=== PATIENT | male | born 1950 | race Caucasian/White ===

== ENCOUNTER 2016-03-31 09:45 | Inpatient (IN) ==
[2016-03-31] MEDS ORDERED: 0.9 % SODIUM CHLORIDE 500 ML IV ONE (10:10)
--- NOTE | 2016-03-31 10:45 | Emergency Department Note ---
Fever HPI - General Chief Complaint: Fever Stated Complaint: fever Time Seen by Provider: 03/31/16 10:42 Source: patient Mode of arrival: ambulatory Limitations: no limitations - History of Present Illness HPI Narrative: 65-year-old male was brought in from [facility]. He was brought in because he had a fever of 101 today. He has also had decrease in consciousness. He usually is able to talk and be verbal. He has been sleeping more. His brother is with him today and says he was lethargic on Sunday. His brother states he does not have a history of pneumonia but may have had urinary tract infections in the past. The patient denies pain. He does not seem in any distress. Christophe Roderick said that he was wheezing yesterday. His brother states he has not noticed a cough. - Related Data Home Medications Medication Instructions Recorded Confirmed Acetaminophen [Tylenol] 325 mg PO Q6HP PRN 03/31/16 03/31/16 Bisacodyl [Dulcolax] 10 mg DE PRN PRN 03/31/16 03/31/16 Divalproex Sodium [Depakote] 125 mg PO BID 03/31/16 03/31/16 Mag Hydrox/Al Hydrox/Simeth 30 ml PO PRN PRN 03/31/16 03/31/16 [Maalox] Memantine HCl [Namenda Xr] 28 mg PO DAILY 03/31/16 03/31/16 OLANZapine [Zyprexa] 2.5 mg PO HS 03/31/16 03/31/16 Pantoprazole [Protonix] 40 mg PO DAILY 03/31/16 03/31/16 Sertraline [Zoloft] 50 mg PO DAILY 03/31/16 03/31/16 levETIRAcetam [Keppra] 1,000 mg PO BID 03/31/16 03/31/16 Allergies Allergy/AdvReac Type Severity Reaction Status Date / Time No Known Drug Allergies Allergy Unverified 03/31/16 13:09 Review of Systems All systems ED: reviewed and negative except as stated. Fever PMH - Past Medical History Medical history: Reports: GERD, seizures, other (raumatic brain injury. Seizures , constipation,depression, GI distress) Surgical history ED: Reports: other (craniotomy) Psychiatric history: Reports: depression - Social History smoking status: Never smoker Physical Exam - General Limitations: altered mental status (unable to verbalize ) General appearance: lethargic - Head Head exam: atraumatic - Eye Eye exam: Present: normal appearance, PERRL, EOMI. Absent: conjunctival injection - Neck Neck exam: Present: normal inspection, full ROM - Chest Chest inspection: Present: normal inspection, symmetric chest wall rise - Respiratory Respiratory exam: Present: normal lung sounds bilaterally (unable to take deep breaths ). Absent: wheezes - Cardiovascular Cardiovascular exam: Present: normal rhythm, tachycardia, normal heart sounds - Abdominal Exam Abdominal exam: Present: soft, normal bowel sounds. Absent: tenderness, guarding, rebound - Neurological Exam Neurological exam: Absent: alert, oriented X3 (oriented to self) - Psychiatric Psychiatric exam: Present: normal mood - Skin Skin exam: Present: warm, dry, intact Course Course Narrative: After fluids he was alert and able to answer simple questions. He will be admitted for urosepsis. Vital Signs Temperature 99.1 F 03/31/16 09:47 Pulse Rate 91 H 03/31/16 09:47 Respiratory Rate 18 03/31/16 09:47 Blood Pressure 99/69 03/31/16 09:47 Pulse Oximetry (%) 92 03/31/16 09:47 Temperature 100.2 F H 03/31/16 13:12 Pulse Rate 98 H 03/31/16 13:16 Respiratory Rate 23 03/31/16 13:16 Blood Pressure 126/88 03/31/16 13:16 Pulse Oximetry (%) 93 03/31/16 13:16 Fever - Lab Data Result diagrams: 03/31/16 10:33 03/31/16 10:33 Lab Results 03/31/16 03/31/16 03/31/16 Range/Units 10:26 10:33 10:33 WBC 14.1 H (4.5-11.0) K/mcL RBC 4.72 (4.50-5.90) M/mcL Hgb 13.9 (13.5-16.5) g/dL Hct 42.9 (41.0-55.0) % MCV 90.9 (80.0-100.0) fL MCH 29.4 (26.0-34.0) pg MCHC 32.4 (31.0-36.0) g/dL RDW 14.4 (11.5-14.5) % Plt Count 134 L (140-440) K/mcL MPV 9.3 (7.4-10.4) fL Total Counted 100 Seg Neutrophils % 74 (38-78) % Band Neutrophils % 6 (0-10) % Lymphocytes % 11 L (15-49) % Monocytes % (Manual) 9 (1-9) % Platelet Estimate Decreased A (NORMAL) RBC Morphology Normal (NORMAL) VBG Lactic Acid 0.9 (0.5-2.2) mmol/L Sodium 139 (133-145) mmol/L Potassium 3.8 (3.3-5.1) mmol/L Chloride 101 (96-108) mmol/L Carbon Dioxide 25 (22-30) mmol/L Anion Gap 13.0 (8-16) BUN 13 (8-23) mg/dl Creatinine 0.7 (0.7-1.2) mg/dl GFR Calculation 100 Glucose 88 (70-105) mg/dL Calcium 8.5 L (8.6-10.4) mg/dl Total Bilirubin 1.1 H (0.0-1.0) mg/dL AST 14 (0-37) U/l ALT 7 (0-40) U/l Alkaline Phosphatase 66 (39-117) U/L Total Protein 6.8 (5.9-8.4) gm/dL Albumin 3.8 (3.2-5.2) gm/dL Globulin 3.0 (2.2-3.7) gm/dL Albumin/Globulin Ratio 1.3 (1.0-2.3) Urine Color Urine Appearance Urine pH (5.0-9.0) Ur Specific [place] (1.000-1.035) Urine Protein (NEG) mg/dL Urine Glucose (UA) (NEG) mg/dL Urine Ketones (NEG) mg/dL Urine Occult Blood (<0.03) mg/dL Urine Nitrate (NEG) Urine Bilirubin (NEG) mg/dL Urine Urobilinogen (NEG) mg/dL Ur Leukocyte Esterase (NEG) /uL Urine RBC (0-1) /hpf Urine WBC (0-4) /hpf Ur Squamous Epith Cells (0-4) /hpf Urine Bacteria (0) /hpf Urine Mucus (0) /hpf Ur Culture Indicated? 03/31/16 Range/Units 12:29 WBC (4.5-11.0) K/mcL RBC (4.50-5.90) M/mcL Hgb (13.5-16.5) g/dL Hct (41.0-55.0) % MCV (80.0-100.0) fL MCH (26.0-34.0) pg MCHC (31.0-36.0) g/dL RDW (11.5-14.5) % Plt Count (140-440) K/mcL MPV (7.4-10.4) fL Total Counted Seg Neutrophils % (38-78) % Band Neutrophils % (0-10) % Lymphocytes % (15-49) % Monocytes % (Manual) (1-9) % Platelet Estimate (NORMAL) RBC Morphology (NORMAL) VBG Lactic Acid (0.5-2.2) mmol/L Sodium (133-145) mmol/L Potassium (3.3-5.1) mmol/L Chloride (96-108) mmol/L Carbon Dioxide (22-30) mmol/L Anion Gap (8-16) BUN (8-23) mg/dl Creatinine (0.7-1.2) mg/dl GFR Calculation Glucose (70-105) mg/dL Calcium (8.6-10.4) mg/dl Total Bilirubin (0.0-1.0) mg/dL AST (0-37) U/l ALT (0-40) U/l Alkaline Phosphatase (39-117) U/L Total Protein (5.9-8.4) gm/dL Albumin (3.2-5.2) gm/dL Globulin (2.2-3.7) gm/dL Albumin/Globulin Ratio (1.0-2.3) Urine Color Sydni Urine Appearance Hazy Urine pH 6.0 (5.0-9.0) Ur Specific [place] 1.035 (1.000-1.035) Urine Protein 100 A (NEG) mg/dL Urine Glucose (UA) Negative (NEG) mg/dL Urine Ketones 20 A (NEG) mg/dL Urine Occult Blood 0.03 A (<0.03) mg/dL Urine Nitrate Pos A (NEG) Urine Bilirubin Neg (NEG) mg/dL Urine Urobilinogen 4.0 A (NEG) mg/dL Ur Leukocyte Esterase 500 A (NEG) /uL Urine RBC 18 H (0-1) /hpf Urine WBC > 182 H (0-4) /hpf Ur Squamous Epith Cells 0 (0-4) /hpf Urine Bacteria Many A (0) /hpf Urine Mucus Many A (0) /hpf Ur Culture Indicated? Yes Disposition Clinical Impression: Sepsis, Community acquired pneumonia Disposition: Xfer As Inpt ([facility]) Condition: Fair Referrals: Charanjit Nelson MD [Primary Care Provider] -
[2016-03-31 11:15] LABS: Mean Cell Volume 90.9 fL (80.0-100.0); Mean Corpuscular HGB Conc 32.4 g/dL (31.0-36.0); Mean Corpuscular Hemoglobin 29.4 pg (26.0-34.0); Platelet Count 134 K/mcL (140-440); RBC 4.72 M/mcL (4.50-5.90); Red Cell Distribution Width 14.4 % (11.5-14.5)
--- NOTE | 2016-03-31 11:24 | XRay Report ---
HISTORY: Reason for Exam:altered loc, fever FINDINGS: There is a subtle infiltrate posteriorly and medially in the left lower lobe. This is a new finding since 02/15/09. The heart is larger today than it was in the prior exam and is now borderline enlarged. There is no congestive heart failure or pleural effusion. There are multiple old healed right lateral rib fractures and old fractures of the right scapula, clavicle and humeral head. IMPRESSION: Mild atelectasis or pneumonia posteriorly and medially in the left lower lobe Interpreted and Authenticated by: Edmond Schreiber 03/31/16
[2016-03-31 11:56] LABS: Band Neutrophils % 6 % (0-10); Lymphocytes % 11 % (15-49); Monocytes % (Manual) 9 % (1-9); Platelet Estimate DECREASED (NORMAL); RBC Morphology NORMAL (NORMAL); Segmented Neutrophils % 74 % (38-78)
[2016-03-31] MEDS ORDERED: AZITHROMYCIN 500 MG in DEXTROSE 5% IN WATER 250 ML IV ONE (12:13)
[2016-03-31] MEDS ORDERED: cefTRIAXone 1 GM in DEXTROSE 5% IN WATER 50 ML IV SCH (12:15)
[2016-03-31 13:00] LABS: ALT/SGPT 7 U/l (0-40); Albumin 3.8 gm/dL (3.2-5.2); Albumin/Globulin Ratio 1.3 (1.0-2.3); Alkaline Phosphatase 66 U/L (39-117); Blood Urea Nitrogen 13 mg/dl (8-23)
[2016-03-31] MEDS ORDERED: ACETAMINOPHEN 325 MG TABLET PO ONE (13:05)
[2016-03-31 13:20] LABS: Appearance,Urine HAZY; Bacteria,Urine MANY /hpf (0); Bilirubin,Urine NEG (NEG); Color,Urine AMBER; Glucose,Urine (UA) NEGATIVE (NEG); Leukocyte Esterase,Urine 500 /uL (NEG); Mucus,Urine MANY /hpf (0); Nitrate,Urine POS (NEG); Protein,Urine 100 mg/dL (NEG); Specific Gravity,Urine 1.035 (1.000-1.035); Urine Blood 0.03 mg/dL (<0.03); Urine RBC 18 /hpf (0-1); Urine Squamous Epithelial Cell 0 /hpf (0-4); Urine WBC > 182 /hpf (0-4)
--- NOTE | 2016-03-31 14:16 | Internal Med History&Physical ---
Medical - H&P: HPI Patient information: Note initiated : 03/31/16 at 2:12 pm Service Date, if different from initiated Date: [] Patient: Armand Ramirez a 65 y/o M admitted on for Fever. Chief Complaint: [] History of present illness: Mr. Ramirez is a 65 year old male who lives with carrillo zepeda, presented to the ER with fever and decreased mentation. The patient brother provided history to the ER physician as per notes, but he was not at bedside. The patient only answers his name, but otherwise does not provide any meaninful history. The chart review notes that the patient has not been feeling well since sunday likely, with decrease in mentation and also having fever and that was the main reason for bringing him to the hospital. Possible cough and some h/o UTI in the past. The pt is a poor historian due to h/o traumatic brain injury. He is on multiple meds for same. ROS unobtainable: due to mental status Medical - H&P: PMH Medical history: traumatic brain injury seizure disorder? hydrocephalus? s/p shunt placement. Surgical history: UNDERCOLLAR BASTER shunt, (noted on CT scan of head done in the past) Pertinent family history: not available. Social history: lives with guardipeyton miller non smoker/ no etoh. as per chart Medical - H&P: Meds Home Medications Medication Instructions Recorded Confirmed Type Acetaminophen [Tylenol] 325 mg PO Q6HP PRN 03/31/16 03/31/16 History Bisacodyl [Dulcolax] 10 mg OR PRN PRN 03/31/16 03/31/16 History Divalproex Sodium [Depakote] 125 mg PO BID 03/31/16 03/31/16 History Mag Hydrox/Al Hydrox/Simeth 30 ml PO PRN PRN 03/31/16 03/31/16 History [Maalox] Memantine HCl [Namenda Xr] 28 mg PO DAILY 03/31/16 03/31/16 History OLANZapine [Zyprexa] 2.5 mg PO HS 03/31/16 03/31/16 History Pantoprazole [Protonix] 40 mg PO DAILY 03/31/16 03/31/16 History Sertraline [Zoloft] 50 mg PO DAILY 03/31/16 03/31/16 History levETIRAcetam [Keppra] 1,000 mg PO BID 03/31/16 03/31/16 History Allergies Allergy/AdvReac Type Severity Reaction Status Date / Time No Known Drug Allergies Allergy Unverified 03/31/16 13:09 Medical - H&P: Exam - Constitutional Vitals: Temp Pulse Resp BP Pulse Ox 100.2 F H 95 H 22 137/71 93 03/31/16 13:12 03/31/16 14:00 03/31/16 14:00 03/31/16 14:00 03/31/16 13:45 General appearance: cooperative, no acute distress - Head Head exam: Present: atraumatic, normal inspection - Eye Eye exam: Absent: periorbital swelling, periorbital tenderness, scleral icterus - ENT ENT exam: Present: mucous membranes moist - Neck Neck exam: Present: normal inspection - Respiratory Respiratory exam: Present: normal respiratory exam. Absent: prolonged expiratory phase, rhonchi, wheezes - Cardiovascular Cardiovascular exam: Present: normal rate and rhythm, +S1, +S2 - GI/Abdominal GI/Abdominal exam: Present: normal bowel sounds, soft. Absent: tenderness - Extremities Exam Extremities exam: Present: Foot pink and warm, neurovascular intact. Absent: pedal edema, tenderness - Neurological Exam Additional comments: aoox1, moves all extremities, no obvious focal deficit. - Psychiatric Additional comments: calm, cooperative, flat affect, Medical - H&P: Reslt - Labs CBC & Chem 7: 03/31/16 10:33 03/31/16 10:33 Labs: Short CBC 03/31/16 Range/Units 10:33 WBC 14.1 H (4.5-11.0) K/mcL Hgb 13.9 (13.5-16.5) g/dL Hct 42.9 (41.0-55.0) % Plt Count 134 L (140-440) K/mcL BMP 03/31/16 10:33 Sodium 139 Potassium 3.8 Chloride 101 Carbon Dioxide 25 BUN 13 Creatinine 0.7 Glucose 88 Calcium 8.5 L Liver Function 03/31/16 Range/Units 10:33 Total Bilirubin 1.1 H (0.0-1.0) mg/dL AST 14 (0-37) U/l ALT 7 (0-40) U/l Alkaline Phosphatase 66 (39-117) U/L Albumin 3.8 (3.2-5.2) gm/dL Urine 03/31/16 Range/Units 12:29 Urine Color Sydni Urine Appearance Hazy Urine pH 6.0 (5.0-9.0) Ur Specific [place] 1.035 (1.000-1.035) Urine Protein 100 A (NEG) mg/dL Urine Glucose (UA) Negative (NEG) mg/dL Medical - H&P: A/P (1) Traumatic brain injury Current visit: Yes Status: Acute (2) Urinary tract infection Current visit: Yes Status: Acute (3) Community acquired pneumonia Current visit: Yes Status: Acute (4) Sepsis Current visit: Yes Status: Acute - Narrative A/P Narrative: The patient a resident of [facility], presents with fever, possible pna on X ray and UTI Sepsis- elevated wbc, fever, increased hr and rr, BP stable, continue with IV fluids, lactate is normal Pneumonia- BLood cultures drawn, IV rocephin, zithromax given in the ER will change to doxycycline in light of the patients interaction with psych meds complicated UTI- UA positive, given male with UTI, get Renal USG, IV rocephin should cover this, will need 10 to 14 days of abx, await cultures DVT hep diet regular, ST eval OT/ PT consult Case management eveal Fall precautions Code status full code till we can verify
[2016-03-31] MEDS ORDERED: PROMETHAZINE 25 MG/ML VIAL IV PRN (15:41)
[2016-03-31] MEDS ORDERED: MAGNESIUM HYDROXIDE 30 ML ORAL.SUSP PO PRN (15:41)
[2016-03-31] MEDS ORDERED: ACETAMINOPHEN 325 MG TABLET PO PRN (15:41)
[2016-03-31] MEDS ORDERED: ONDANSETRON 4 MG/2 ML VIAL IV PRN (15:41)
[2016-03-31] MEDS: 0.9 % SODIUM CHLORIDE 1,000 ML IV SCH (17:21)
[2016-03-31] MEDS: 0.9 % SODIUM CHLORIDE 10 ML SYRINGE IV SCH ×2 (17:38→22:19)
[2016-03-31] MEDS: DOXYCYCLINE HYCLATE 100 MG TABLET.ORL PO SCH ×2 (17:38→21:14)
[2016-03-31] MEDS: HEPARIN 5,000 UNIT/ML VIAL SQ SCH (21:12)
[2016-03-31] MEDS: levETIRAcetam 500 MG TABLET PO SCH (21:13)
[2016-03-31] MEDS: OLANZapine 2.5 MG TABLET PO SCH (21:14)
[2016-03-31] MEDS: DIVALPROEX 125 MG CAP.SPRINK PO SCH (21:14)
[2016-03-31] MEDS: DOCUSATE SODIUM 100 MG CAPSULE PO SCH (21:14)
[2016-04-01] MEDS: 0.9 % SODIUM CHLORIDE 1,000 ML IV SCH ×3 (04:17→14:08)
[2016-04-01] MEDS: 0.9 % SODIUM CHLORIDE 10 ML SYRINGE IV SCH ×2 (04:25→12:07)
[2016-04-01 07:57] LABS: ALT/SGPT 7 U/l (0-40); Albumin 3.2 gm/dL (3.2-5.2); Albumin/Globulin Ratio 1.2 (1.0-2.3); Alkaline Phosphatase 52 U/L (39-117); Bilirubin,Direct < 0.2 mg/dL (0.0-0.3); Blood Urea Nitrogen 11 mg/dl (8-23); Gamma Glutamyl Transpeptidase 14 U/L (8-61); Magnesium 1.8 mg/dL (1.6-2.5); Phosphorous 2.8 mg/dL (2.7-4.5); Uric Acid 3.6 mg/dL (2.5-8.0)
[2016-04-01 08:21] LABS: Eosinophils % (Manual) 1 % (0-7); Lymphocytes % 8 % (15-49); Monocytes % (Manual) 5 % (1-9); Platelet Estimate DECREASED (NORMAL); RBC Morphology NORMAL (NORMAL); Segmented Neutrophils % 86 % (38-78)
[2016-04-01 08:36] LABS: Mean Cell Volume 90.3 fL (80.0-100.0); Mean Corpuscular HGB Conc 32.8 g/dL (31.0-36.0); Mean Corpuscular Hemoglobin 29.6 pg (26.0-34.0); Platelet Count 99 K/mcL (140-440); RBC 4.16 M/mcL (4.50-5.90)
[2016-04-01] MEDS: cefTRIAXone 1 GM in DEXTROSE 5% IN WATER 50 ML IV SCH (08:50)
[2016-04-01] MEDS: levETIRAcetam 500 MG TABLET PO SCH ×2 (08:51→21:01)
[2016-04-01] MEDS: DOXYCYCLINE HYCLATE 100 MG TABLET.ORL PO SCH ×2 (08:51→21:21)
[2016-04-01] MEDS: DOCUSATE SODIUM 100 MG CAPSULE PO SCH ×2 (08:51→21:21)
[2016-04-01] MEDS: HEPARIN 5,000 UNIT/ML VIAL SQ SCH ×2 (08:51→21:01)
[2016-04-01] MEDS: PANTOPRAZOLE 40 MG TABLET PO SCH (08:51)
[2016-04-01] MEDS: DIVALPROEX 125 MG CAP.SPRINK PO SCH ×2 (08:51→21:21)
[2016-04-01] MEDS: SERTRALINE 50 MG TABLET PO SCH (08:52)
[2016-04-01] MEDS: MEMANTINE HCL 28 MG PO SCH ×2 (08:52→09:53)
[2016-04-01] MEDS ORDERED: cefTRIAXone 1 GM in DEXTROSE 5% IN WATER 50 ML IV SCH (12:15)
--- NOTE | 2016-04-01 13:56 | Ultrasound Report ---
History: Complex urinary tract infection Findings: The right kidney measures 4.6 x 4.6 x 11.2 cm the left measures 5.5 x 6.0 x 12.2 cm. The cortex is normal in thickness and echogenicity bilaterally. There is no mass, cyst, calculus, hydronephrosis or evidence of inflammation in or around either kidney. Doppler shows flow of urine through the left ureter to the bladder. We are unable to document flow on the right side. The urinary bladder is normally distended and has a smooth contour, with no intraluminal filling defect. It measures 139 cc. He was unable to void. Therefore we did not acquire a post void image. The prostate has an estimated volume of 25 cc. It appears homogeneous. Impression: Normal exam except for relatively diminished urine output on the right side compared to the left. This could be related to dehydration. Interpreted and Authenticated by: Edmond Schreiber 04/01/16
--- NOTE | 2016-04-01 15:20 | Internal Med Progress Note ---
Medical - PN: Subj Patient information: Note initiated : 04/01/16 at 3:17 pm Service Date, if different from initiated Date: [] Patient: Armand Ramirez 65 y/o M admitted on 03/31/16 for Fever. Chief Complaint: [] Interval history: The patient seen examined, in the bed comfortable, no acute overnight events. no new complaints. no more febrile, bp stable Urine cultures is positive for gram neg bacillus blood cultures one bottle positive for gram positive cocci. Pertinent ROS: Denies headache, dizziness Denies chest pain, palpitations Denies cough or shortness of breath Denies abdominal pain, nausea or vomiting. - Constitutional Vitals: Vital Signs Temp Pulse Resp BP Pulse Ox 99.1 F 81 18 132/70 94 04/01/16 12:00 04/01/16 07:30 04/01/16 12:00 04/01/16 12:00 04/01/16 12:00 Period Temp Pulse Resp BP Sys/Leigh Pulse Ox Last 24 Hr 97.6 F-100.2 F 77-95 16-22 99-132/69-89 92-97 Intake and Output 04/01/16 04/01/16 04/01/16 05:59 13:59 21:59 Intake Total 1640 / 1640 220 / 220 1000 / 1000 Output Total 2 / 2 2 / 2 Balance 1638 / 1638 218 / 218 1000 / 1000 Weight 209 lb Patient Weight 04/02/16 05:59 Weight 209 lb Intake & Output: Intake & Output 04/01/16 04/01/16 04/01/16 05:59 13:59 21:59 Intake Total 1640 / 1640 220 / 220 1000 / 1000 Output Total 2 / 2 2 / 2 Balance 1638 / 1638 218 / 218 1000 / 1000 Weight 209 lb Intake: IV 1000 / 1000 1000 / 1000 Sodium Chloride 0.9% 1, 1000 / 1000 1000 / 1000 000 ml @ 100 mls/hr IV . Q10H ELSA Rx#:[id number] Oral 640 / 640 220 / 220 Output: # of times incontinent of 2 / 2 2 / 2 urine Other: Meal Lunch Percent of Meal Consumed 50% Feeding Ability Total Assistance Exam: Constitutional; Afebrile, cooperative, alert, not in distress. Eyes- No icterus, Pupils equal, reactive, No periorbital swelling Ears- Ext ear normal, hearing normal to conversation. Neck- Midline trachea, supple Respiratory system: Air Entry equal on both sides, No crackles or wheezing, no rhonchi. CVS- Rate rhythm regular, S1,S2 heard, no gallop, no rub. Abdomen- Soft nontender abdomen, no organomegaly, no tenderness, no guarding or rigidity, STEEL LOADER- AOOx1, moving all extremities, no obvious focal deficit noted. Medical - PN: Obj Da - Labs CBC & Chem 7: 04/01/16 06:27 04/01/16 06:27 Labs: Abnormal Lab Results 04/01/16 04/01/16 06:27 06:27 RBC 4.16 L Hgb 12.3 L Hct 37.5 L Plt Count 99 L Seg Neutrophils % 86 H Lymphocytes % 8 L Platelet Estimate Decreased A Creatinine 0.6 L Calcium 7.7 L Total Protein 5.8 L Meds: Medications Acetaminophen (Tylenol) 650 mg PO Q6HP PRN PRN Reason: PAIN/FEVER > 101 Divalproex Sodium (Depakote Sprinkles) 125 mg PO BID [facility] Last Admin: 04/01/16 08:51 Dose: 125 mg Docusate Sodium (Colace) 100 mg PO BID [facility] Last Admin: 04/01/16 08:51 Dose: Not Given Doxycycline Hyclate (Doxycycline Hyclate) 100 mg PO BID [facility] Stop: 04/06/16 21:01 Last Admin: 04/01/16 08:51 Dose: 100 mg Heparin Sodium (Porcine) (Heparin) 5,000 unit SQ Q12 [facility] Last Admin: 04/01/16 08:51 Dose: 5,000 unit Sodium Chloride (Sodium Chloride 0.9%) 1,000 mls @ 100 mls/hr IV .Q10H [facility] Last Admin: 04/01/16 14:08 Dose: 100 mls/hr Ceftriaxone Sodium 1 gm/ (Dextrose) 50 mls @ 100 mls/hr IV DAILY [facility] Last Admin: 04/01/16 08:50 Dose: 100 mls/hr Levetiracetam (Keppra) 1,000 mg PO BID [facility] Last Admin: 04/01/16 08:51 Dose: 1,000 mg Magnesium Hydroxide (Milk Of Magnesia) 30 ml PO DAILYP PRN PRN Reason: Constipation Olanzapine (Zyprexa) 2.5 mg PO HS [facility] Last Admin: 03/31/16 21:14 Dose: 2.5 mg Ondansetron HCl (Zofran) 4 mg IV Q6HP PRN PRN Reason: Nausea And Vomiting Pantoprazole Sodium (Protonix) 40 mg PO ACB [facility] Last Admin: 04/01/16 08:51 Dose: 40 mg Memantine Hcl [ Namenda Xr] 28 Mg Capsule 1 dose PO DAILY [facility] Last Admin: 04/01/16 09:53 Dose: 1 dose Promethazine HCl (Phenergan) 12.5 mg IV Q6HP PRN PRN Reason: Nausea And Vomiting Sertraline HCl (Zoloft) 50 mg PO DAILY [facility] Last Admin: 04/01/16 08:52 Dose: 50 mg Sodium Chloride (Saline Flush) 10 ml IV Q8 [facility] Last Admin: 04/01/16 12:07 Dose: Not Given Medical - PN: A/P - Time Spent With Patient Total time spent is greater than 50% in coordination of care (as documented) at patient's floor/unit and/or counseling patient: (1) Traumatic brain injury Status: Acute Current Visit: Yes (2) Urinary tract infection Status: Acute Current Visit: Yes (3) Community acquired pneumonia Status: Acute Current Visit: Yes - Narrative A/P Narrative: The patient is improving clinically, sepsis resolved. Contique IV Rocephin for UTI / PNA continue doxycycline IV fluids Await sensitivities I think that eh GPC in the blood is a contaminant, repeat cultures ordered. monitor for now PT / OT Medical - PN: Qual - Stroke Symptom Onset Unknown: No - VTE Deep Vein Thrombosis/Pulmonary Embolism Present on Admission: No
[2016-04-01] MEDS: OLANZapine 2.5 MG TABLET PO SCH (21:01)
[2016-04-02] MEDS: 0.9 % SODIUM CHLORIDE 1,000 ML IV SCH ×3 (01:54→16:09)
[2016-04-02] MEDS: 0.9 % SODIUM CHLORIDE 10 ML SYRINGE IV SCH ×4 (01:58→22:13)
[2016-04-02 07:04] LABS: ALT/SGPT 6 U/l (0-40); Albumin 2.9 gm/dL (3.2-5.2); Albumin/Globulin Ratio 1.1 (1.0-2.3); Alkaline Phosphatase 51 U/L (39-117); Bilirubin,Direct < 0.2 mg/dL (0.0-0.3); Blood Urea Nitrogen 10 mg/dl (8-23); Gamma Glutamyl Transpeptidase 15 U/L (8-61); Magnesium 1.8 mg/dL (1.6-2.5); Mean Corpuscular HGB Conc 32.6 g/dL (31.0-36.0); Mean Corpuscular Hemoglobin 29.7 pg (26.0-34.0); Phosphorous 3.2 mg/dL (2.7-4.5); Platelet Count 107 K/mcL (140-440); RBC 4.14 M/mcL (4.50-5.90); Uric Acid 3.5 mg/dL (2.5-8.0)
[2016-04-02] MEDS: PANTOPRAZOLE 40 MG TABLET PO SCH (07:25)
[2016-04-02 08:36] LABS: Band Neutrophils % 1 % (0-10); Eosinophils % (Manual) 5 % (0-7); Lymphocytes % 34 % (15-49); Monocytes % (Manual) 12 % (1-9); Platelet Estimate DECREASED (NORMAL); RBC Morphology NORMAL (NORMAL); Segmented Neutrophils % 48 % (38-78)
[2016-04-02] MEDS: DOCUSATE SODIUM 100 MG CAPSULE PO SCH ×3 (08:44→21:21)
[2016-04-02] MEDS: HEPARIN 5,000 UNIT/ML VIAL SQ SCH ×2 (09:00→21:18)
[2016-04-02] MEDS: levETIRAcetam 500 MG TABLET PO SCH ×2 (09:00→21:19)
[2016-04-02] MEDS: DIVALPROEX 125 MG CAP.SPRINK PO SCH ×2 (09:00→21:18)
[2016-04-02] MEDS: MEMANTINE HCL 28 MG PO SCH (09:00)
[2016-04-02] MEDS: SERTRALINE 50 MG TABLET PO SCH (09:01)
[2016-04-02] MEDS: cefTRIAXone 1 GM in DEXTROSE 5% IN WATER 50 ML IV SCH (09:01)
[2016-04-02] MEDS: DOXYCYCLINE HYCLATE 100 MG TABLET.ORL PO SCH ×2 (09:29→21:33)
--- NOTE | 2016-04-02 13:56 | Internal Med Progress Note ---
Medical - PN: Subj Patient information: Note initiated : 04/02/16 at 1:51 pm Service Date, if different from initiated Date: [] Patient: Armand Ramirez 65 y/o M admitted on 03/31/16 for Fever. Chief Complaint: [] Interval history: Pt seen examined lying comfortably in bed, no complaints able to have limited conversation denies any issues labs reviewed, wbc normal urine culture is proteus BC positive on day of admission 2/2 bottles gpc, sensitivies and isolation pending. repeat culutes ordered results not back yet. Pertinent ROS: Denies headache, dizziness Denies chest pain, palpitations Denies cough or shortness of breath Denies abdominal pain, nausea or vomiting. - Constitutional Vitals: Vital Signs Temp Pulse Resp BP Pulse Ox 97.4 F L 84 16 112/75 95 04/02/16 12:00 04/02/16 04:00 04/02/16 12:00 04/02/16 12:00 04/02/16 12:00 Period Temp Pulse Resp BP Sys/Leigh Pulse Ox Last 24 Hr 97.4 F-99.6 F 67-84 16-18 99-118/61-80 93-95 Intake and Output 04/01/16 04/02/16 04/02/16 21:59 05:59 13:59 Intake Total 1340 / 1340 1300 / 1300 240 / 240 Output Total / 2 / 2 Balance 1338 / 1338 1298 / 1298 239 / 239 Weight 216 lb 8 oz Intake & Output: Intake & Output 04/01/16 04/02/16 04/02/16 21:59 05:59 13:59 Intake Total 1340 / 1340 1300 / 1300 240 / 240 Output Total / 2 Balance 1338 / 1338 1298 / 1298 239 / 239 Weight 216 lb 8 oz Intake: IV 1000 / 1000 1000 / 1000 Sodium Chloride 0.9% 1, 1000 / 1000 1000 / 1000 000 ml @ 100 mls/hr IV . Q10H [facility] Rx#:[id number] Oral 340 / 340 300 / 300 240 / 240 Output: # of times incontinent of 2 / 2 2 / 2 urine Other: Meal Dinner Lunch Percent of Meal Consumed 50% 100% Feeding Ability Total Assistance # Bowel Movements 1 Exam: Constitutional; Afebrile, cooperative, alert, not in distress. Eyes- No icterus, Pupils equal, reactive, No periorbital swelling Ears- Ext ear normal, hearing normal to conversation. Neck- Midline trachea, supple Respiratory system: Air Entry equal on both sides, No crackles or wheezing, no rhonchi. CVS- Rate rhythm regular, S1,S2 heard, no gallop, no rub. Abdomen- Soft nontender abdomen, no organomegaly, no tenderness, no guarding or rigidity, PV INSTALLER TECH- AOOx1, moving all extremities, no focal deficit noted. Psych- no agitation, poor comphrension. Medical - PN: Obj Da - Labs CBC & Chem 7: 04/02/16 05:00 04/02/16 05:00 Labs: Abnormal Lab Results 04/02/16 04/02/16 04/01/16 05:00 05:00 06:27 RBC 4.14 L Hgb 12.3 L Hct 37.7 L Plt Count 107 L Seg Neutrophils % Lymphocytes % Monocytes % (Manual) 12 H Platelet Estimate Decreased A Creatinine 0.6 L 0.6 L Calcium 7.8 L 7.7 L Total Protein 5.5 L 5.8 L Albumin 2.9 L 04/01/16 06:27 RBC 4.16 L Hgb 12.3 L Hct 37.5 L Plt Count 99 L Seg Neutrophils % 86 H Lymphocytes % 8 L Monocytes % (Manual) Platelet Estimate Decreased A Creatinine Calcium Total Protein Albumin Meds: Medications Acetaminophen (Tylenol) 650 mg PO Q6HP PRN PRN Reason: PAIN/FEVER > 101 Divalproex Sodium (Depakote Sprinkles) 125 mg PO BID [facility] Last Admin: 04/02/16 09:00 Dose: 125 mg Docusate Sodium (Colace) 100 mg PO BID [facility] Last Admin: 04/02/16 09:00 Dose: 100 mg Doxycycline Hyclate (Doxycycline Hyclate) 100 mg PO BID [facility] Stop: 04/06/16 21:01 Last Admin: 04/02/16 09:29 Dose: 100 mg Heparin Sodium (Porcine) (Heparin) 5,000 unit SQ Q12 [facility] Last Admin: 04/02/16 09:00 Dose: 5,000 unit Sodium Chloride (Sodium Chloride 0.9%) 1,000 mls @ 100 mls/hr IV .Q10H [facility] Last Admin: 04/02/16 07:26 Dose: 100 mls/hr Ceftriaxone Sodium 1 gm/ (Dextrose) 50 mls @ 100 mls/hr IV DAILY [facility] Last Admin: 04/02/16 09:01 Dose: 100 mls/hr Levetiracetam (Keppra) 1,000 mg PO BID [facility] Last Admin: 04/02/16 09:00 Dose: 1,000 mg Magnesium Hydroxide (Milk Of Magnesia) 30 ml PO DAILYP PRN PRN Reason: Constipation Olanzapine (Zyprexa) 2.5 mg PO HS [facility] Last Admin: 04/01/16 21:01 Dose: 2.5 mg Ondansetron HCl (Zofran) 4 mg IV Q6HP PRN PRN Reason: Nausea And Vomiting Pantoprazole Sodium (Protonix) 40 mg PO ACB [facility] Last Admin: 04/02/16 07:25 Dose: 40 mg Memantine Hcl [ Namenda Xr] 28 Mg Capsule 1 dose PO DAILY [facility] Last Admin: 04/02/16 09:00 Dose: 1 dose Promethazine HCl (Phenergan) 12.5 mg IV Q6HP PRN PRN Reason: Nausea And Vomiting Sertraline HCl (Zoloft) 50 mg PO DAILY [facility] Last Admin: 04/02/16 09:01 Dose: 50 mg Sodium Chloride (Saline Flush) 10 ml IV Q8 [facility] Last Admin: 04/02/16 13:38 Dose: Not Given Medical - PN: A/P - Time Spent With Patient Total time spent is greater than 50% in coordination of care (as documented) at patient's floor/unit and/or counseling patient: (1) Traumatic brain injury Status: Acute Current Visit: Yes (2) Urinary tract infection Status: Acute Current Visit: Yes (3) Community acquired pneumonia Status: Acute Current Visit: Yes (4) Bacteremia Status: Acute Current Visit: Yes - Narrative A/P Narrative: UTI- on rocephin, continue same, switch to appropriate oral at discharge bactyermia- both bottles positive, but high suspiction this is contaminant, await sensitiviies, give one dose of vancomycin. await repeat cultures. clincally patient is improving. cap pneumonia- on doxy and rocephin continue same. dVT hep sq diet mech soft with thin liq Await pt dispo in AM if remains stable. Medical - PN: Qual - Stroke Symptom Onset Unknown: No - VTE Deep Vein Thrombosis/Pulmonary Embolism Present on Admission: No
[2016-04-02] MEDS ORDERED: VANCOMYCIN 1,000 MG in 0.9 % SODIUM CHLORIDE 250 ML IV ONE (15:00)
[2016-04-02] MEDS: OLANZapine 2.5 MG TABLET PO SCH (21:18)
[2016-04-03] MEDS: 0.9 % SODIUM CHLORIDE 1,000 ML IV SCH ×3 (00:15→14:13)
[2016-04-03] MEDS: 0.9 % SODIUM CHLORIDE 10 ML SYRINGE IV SCH ×3 (05:16→20:50)
[2016-04-03 06:32] LABS: ALT/SGPT 9 U/l (0-40); Albumin 3.1 gm/dL (3.2-5.2); Albumin/Globulin Ratio 1.2 (1.0-2.3); Alkaline Phosphatase 49 U/L (39-117); Bilirubin,Direct < 0.2 mg/dL (0.0-0.3); Blood Urea Nitrogen 8 mg/dl (8-23); Gamma Glutamyl Transpeptidase 13 U/L (8-61); Magnesium 1.7 mg/dL (1.6-2.5); Phosphorous 3.1 mg/dL (2.7-4.5); Uric Acid 3.8 mg/dL (2.5-8.0)
[2016-04-03 06:33] LABS: Platelet Count 130 K/mcL (140-440); RBC 4.09 M/mcL (4.50-5.90); Red Cell Distribution Width 13.8 % (11.5-14.5)
[2016-04-03] MEDS: PANTOPRAZOLE 40 MG TABLET PO SCH (07:14)
[2016-04-03] MEDS ORDERED: VANCOMYCIN PER PHARMACY IV SCH (07:35)
[2016-04-03] MEDS: DOCUSATE SODIUM 100 MG CAPSULE PO SCH ×2 (07:40→20:50)
[2016-04-03] MEDS: cefTRIAXone 1 GM in DEXTROSE 5% IN WATER 50 ML IV SCH (07:40)
[2016-04-03] MEDS: levETIRAcetam 500 MG TABLET PO SCH ×2 (07:41→20:44)
[2016-04-03] MEDS: MEMANTINE HCL 28 MG PO SCH (07:41)
[2016-04-03] MEDS: DIVALPROEX 125 MG CAP.SPRINK PO SCH ×2 (07:42→20:45)
[2016-04-03] MEDS: HEPARIN 5,000 UNIT/ML VIAL SQ SCH ×2 (07:43→20:48)
[2016-04-03] MEDS: SERTRALINE 50 MG TABLET PO SCH (07:43)
[2016-04-03 08:38] LABS: Band Neutrophils % 10 % (0-10); Basophils % (Manual) 1 % (0-2); Eosinophils % (Manual) 4 % (0-7); Lymphocytes % 21 % (15-49); Monocytes % (Manual) 9 % (1-9); Platelet Estimate DECREASED (NORMAL); RBC Morphology NORMAL (NORMAL); Segmented Neutrophils % 55 % (38-78)
[2016-04-03] MEDS: DOXYCYCLINE HYCLATE 100 MG TABLET.ORL PO SCH ×2 (08:44→20:57)
[2016-04-03] MEDS: VANCOMYCIN 1,500 MG in 0.9 % SODIUM CHLORIDE 500 ML IV SCH ×2 (12:29→20:43)
--- NOTE | 2016-04-03 16:15 | Internal Med Progress Note ---
Medical - PN: Subj Patient information: Note initiated : 04/03/16 at 4:11 pm Service Date, if different from initiated Date: [] Patient: Armand Ramirez 65 y/o M admitted on 03/31/16 for Fever/Pneumonia, Sepsis, UTI. Chief Complaint: [] Interval history: the patient seen examined doing ok, no acute complaints slep well last night not a very good historian due to his mental condition. his labs reviwed UA postive for UTI proteus mirabilit his BC is again positive for one bottle, started on vancomycin, echo ordered. The patient is a very hard stick and I stil lthink that the patients blood cultures are positive from poor collection technique. Pertinent ROS: Denies headache, dizziness Denies chest pain, palpitations Denies cough or shortness of breath Denies abdominal pain, nausea or vomiting. - Constitutional Vitals: Vital Signs Temp Pulse Resp BP Pulse Ox 98.1 F 80 16 105/76 90 04/03/16 12:00 04/03/16 12:00 04/03/16 12:00 04/03/16 12:00 04/03/16 12:00 Period Temp Pulse Resp BP Sys/Leigh Pulse Ox Last 24 Hr 98.0 F-98.7 F 60-83 12-18 105-131/62-76 89-97 Intake and Output 04/03/16 04/03/16 04/03/16 05:59 13:59 21:59 Intake Total 300 / 300 1000 / 1000 Output Total 2 / 2 1 / Balance 298 / 298 1000 / 1000 -1 / -1 Intake & Output: Intake & Output 04/03/16 04/03/16 04/03/16 05:59 13:59 21:59 Intake Total 300 / 300 1000 / 1000 Output Total 2 / 2 1 / Balance 298 / 298 1000 / 1000 -1 / -1 Intake: IV 1000 / 1000 Sodium Chloride 0.9% 1, 1000 / 1000 000 ml @ 100 mls/hr IV . Q10H [facility] Rx#:[id number] Oral 300 / 300 Output: # of times incontinent of 2 / 2 1 / urine Other: Meal Lunch Percent of Meal Consumed 75% Exam: Constitutional; Afebrile, cooperative, alert, not in distress. Eyes- No icterus, No periorbital swelling Ears- Ext ear normal, hearing normal to conversation. Neck- Midline trachea, supple Respiratory system: Air Entry equal on both sides, No crackles or wheezing, no rhonchi. CVS- Rate rhythm regular, S1,S2 heard, no gallop, no rub. Abdomen- Soft nontender abdomen, no organomegaly, no tenderness, no guarding or rigidity, FISH HATCHERY ASSISTANT- AOOx1, moving all extremities, no focal deficit noted. Medical - PN: Obj Da - Labs CBC & Chem 7: 04/03/16 05:34 04/03/16 04:39 Labs: Abnormal Lab Results 04/03/16 04/03/16 04/02/16 05:34 04:39 05:00 RBC 4.09 L Hgb 12.3 L Hct 37.2 L Plt Count 130 L Seg Neutrophils % Lymphocytes % Monocytes % (Manual) Platelet Estimate Decreased A Creatinine 0.6 L 0.6 L Calcium 7.9 L 7.8 L Lactate Dehydrogenase 264 H Total Protein 5.7 L 5.5 L Albumin 3.1 L 2.9 L Triglycerides 173 H 04/02/16 04/01/16 04/01/16 05:00 06:27 06:27 RBC 4.14 L 4.16 L Hgb 12.3 L 12.3 L Hct 37.7 L 37.5 L Plt Count 107 L 99 L Seg Neutrophils % 86 H Lymphocytes % 8 L Monocytes % (Manual) 12 H Platelet Estimate Decreased A Decreased A Creatinine 0.6 L Calcium 7.7 L Lactate Dehydrogenase Total Protein 5.8 L Albumin Triglycerides Meds: Medications Acetaminophen (Tylenol) 650 mg PO Q6HP PRN PRN Reason: PAIN/FEVER > 101 Divalproex Sodium (Depakote Sprinkles) 125 mg PO BID [facility] Last Admin: 04/03/16 07:42 Dose: 125 mg Docusate Sodium (Colace) 100 mg PO BID [facility] Last Admin: 04/03/16 07:40 Dose: Not Given Doxycycline Hyclate (Doxycycline Hyclate) 100 mg PO BID [facility] Stop: 04/06/16 21:01 Last Admin: 04/03/16 08:44 Dose: 100 mg Heparin Sodium (Porcine) (Heparin) 5,000 unit SQ Q12 [facility] Last Admin: 04/03/16 07:43 Dose: 5,000 unit Sodium Chloride (Sodium Chloride 0.9%) 1,000 mls @ 100 mls/hr IV .Q10H [facility] Last Admin: 04/03/16 14:13 Dose: 100 mls/hr Ceftriaxone Sodium 1 gm/ (Dextrose) 50 mls @ 100 mls/hr IV DAILY [facility] Last Admin: 04/03/16 07:40 Dose: 100 mls/hr Vancomycin HCl 1,500 mg/ (Sodium Chloride) 500 mls @ 333.3 mls/hr IV Q12H [facility] Last Admin: 04/03/16 12:29 Dose: 333.3 mls/hr Levetiracetam (Keppra) 1,000 mg PO BID [facility] Last Admin: 04/03/16 07:41 Dose: 1,000 mg Magnesium Hydroxide (Milk Of Magnesia) 30 ml PO DAILYP PRN PRN Reason: Constipation Olanzapine (Zyprexa) 2.5 mg PO HS [facility] Last Admin: 04/02/16 21:18 Dose: 2.5 mg Ondansetron HCl (Zofran) 4 mg IV Q6HP PRN PRN Reason: Nausea And Vomiting Pantoprazole Sodium (Protonix) 40 mg PO ACB [facility] Last Admin: 04/03/16 07:14 Dose: 40 mg Memantine Hcl [ Namenda Xr] 28 Mg Capsule 1 dose PO DAILY [facility] Last Admin: 04/03/16 07:41 Dose: 1 dose Promethazine HCl (Phenergan) 12.5 mg IV Q6HP PRN PRN Reason: Nausea And Vomiting Sertraline HCl (Zoloft) 50 mg PO DAILY [facility] Last Admin: 04/03/16 07:43 Dose: 50 mg Sodium Chloride (Saline Flush) 10 ml IV Q8 [facility] Last Admin: 04/03/16 14:13 Dose: Not Given Vancomycin HCl (Vancomycin Per Pharmacy) 1 order IV UD [facility] Medical - PN: A/P - Time Spent With Patient Total time spent is greater than 50% in coordination of care (as documented) at patient's floor/unit and/or counseling patient: (1) Traumatic brain injury Status: Acute Current Visit: Yes (2) Urinary tract infection Status: Acute Current Visit: Yes (3) Community acquired pneumonia Status: Acute Current Visit: Yes (4) Bacteremia Status: Acute Current Visit: Yes - Narrative A/P Narrative: The patient continues to improve, plan was for d/c today, however given his blood cultures being positive IV vanco started, echo ordered, repeat cultures ordered coag neg staph is a common contaminant of poor culture technique, this patient is a hard stick for labs Plan to continue antibiotics for uti and pna dvt hep sq Diet dyphagia diet. Medical - PN: Qual - Stroke Symptom Onset Unknown: No - VTE Deep Vein Thrombosis/Pulmonary Embolism Present on Admission: No
[2016-04-03] MEDS: OLANZapine 2.5 MG TABLET PO SCH (20:44)
[2016-04-04] MEDS: 0.9 % SODIUM CHLORIDE 1,000 ML IV SCH ×2 (06:44→09:11)
--- NOTE | 2016-04-04 07:07 | Echocardiogram Report ---
ECHOCARDIOGRAM: 2-D and M-mode echocardiography with cardiac Doppler and color flow imaging were performed with a [employer]a [employer] MX. Indication is bacteremia. Overall and size of the RA and RV appeared normal. The LA appeared mildly enlarged and the LV appeared borderline enlarged. LV wall thickness appeared mildly increased. Systolic performance appeared normal to vigorous. Estimated ejection fraction is 65-70%. The aortic root and ascending aorta appeared moderately to severely dilated, 5.0 cm diameter. The aortic valve appeared trileaflet and normal. There was no evidence for aortic stenosis by Doppler interrogation. Aortic regurgitation, probably mild (1+), was demonstrated. The mitral and tricuspid valves appeared unremarkable. Doppler interrogation of LV inflow disclosed normal early diastolic deceleration time and equal ''e'' and ''a'' wave amplitude. No more than mild (1+) mitral regurgitation was noted. The pulmonic valve was not visualized. Pulmonary artery acceleration time appeared normal. There was no evidence for pulmonic stenosis or pulmonic regurgitation. There was no evidence for tricuspid regurgitation. No intracardiac shunting was appreciated. There was no evidence for pericardial effusion. The IVC was of normal diameter and showed normal respiratory variation. Hepatic venous interrogation disclosed normal ''s'' wave dominance. Sinus rhythm, rate 62, was present. CONCLUSION: Moderate to severe aortic root/ascending aortic dilatation. Aortic regurgitation, probably mild (1+). Borderline LV enlargement with mild concentric hypertrophy and normal to vigorous systolic performance. Mitral regurgitation, probably mild (1+), with mild LA enlargement. Note: This patient may be approaching indication for aortic root reconstruction. No vegetations were identified. Transesophageal echocardiography is superior to transthoracic echocardiography in detecting and delineating cardiac vegetations. Since previous study 02/13/2009, aortic root/ascending aortic diameter measures larger. (See accompanying M-mode and Doppler reports for quantitation.) ECHOCARDIOGRAPHY M-MODE CALCULATIONS: HT: 70'' WT: 217 BSA: 2.16 m2 NORMALS AORTA: AORTIC ROOT 5.0 2.0-3.7 cm LEFT ATRIUM 3.8 1.9-4.0 cm MITRAL VALVE: EXCURSION 2.2 1.9-2.7 cm EPSS 0 <0.5 cm LT VENTRICLE: LVID (ED) 5.5 3.5-5.7 cm LVID (ES) 3.8 SEPTAL THICKNESS 1.2 0.6-1.1 cm SEPTAL EXCURSION 0.7 0.3-0.8 cm LVPW THICKNESS 1.2 0.6-1.1 cm LVPW EXCURSION 1.1 0.9-1.4 cm MINOR AXIS FS 3.1 25%-40% RT VENTRICLE: RVID (ED) -- 0.9-2.6 cm(up to 3cm if LLD) QUALITATIVE DOPPLER FLOW STUDIES MITRAL VALVE MR, probably mild (1+) AORTIC VALVE AR, probably mild (1+) TRICUSPID VALVE -- PULMONIC VALVE -- QUANTITATIVE DOPPLER FLOW STUDIES SAMPLE SITES VELOCITIES PEAK PRESSURE VALVE AREA and/or VALVE WINDOW (PEAK,M/SEC) DROP (GRADIENT) PRESSURE HALF-TIME MV (Diastole) 0.8 0.8 -- -- MV (Systole) 1.4 -- -- AO (Diastole) 3.0 -- 747 msec AO (Systole) 1.3 -- -- TV (Systole) -- -- -- PV (Systole) 1.1 -- -- PV (Diastole) -- LWG:prashanth Job ID: [id number] Doc ID: [id number] Roni Morales MD
[2016-04-04] MEDS: PANTOPRAZOLE 40 MG TABLET PO SCH (07:35)
[2016-04-04] MEDS: 0.9 % SODIUM CHLORIDE 10 ML SYRINGE IV SCH ×3 (07:35→22:45)
[2016-04-04 08:59] LABS: Basophils # (Auto) 0 K/mcL (0.0-0.3); Basophils % (Auto) 0.5 % (0.0-2.0); Eosinophils # (Auto) 0.1 K/mcL (0.0-0.7); Eosinophils % (Auto) 3.4 % (0.0-7.0); Granulocytes % (Auto) 65.4 % (38.0-78.0); Lymphocytes # (Auto) 0.9 K/mcL (1.5-4.8); Lymphocytes % (Auto) 21.7 % (15.5-49.0); Mean Cell Volume 89.6 fL (80.0-100.0); Mean Corpuscular HGB Conc 32.5 g/dL (31.0-36.0); Mean Corpuscular Hemoglobin 29.1 pg (26.0-34.0); Monocytes # (Auto) 0.4 K/mcL (0.1-0.9); Platelet Count 122 K/mcL (140-440); RBC 4.23 M/mcL (4.50-5.90); Red Cell Distribution Width 13.9 % (11.5-14.5)
[2016-04-04] MEDS: HEPARIN 5,000 UNIT/ML VIAL SQ SCH ×2 (09:06→21:54)
[2016-04-04] MEDS: MEMANTINE HCL 28 MG PO SCH (09:06)
[2016-04-04] MEDS: SERTRALINE 50 MG TABLET PO SCH (09:07)
[2016-04-04] MEDS: levETIRAcetam 500 MG TABLET PO SCH ×2 (09:07→21:54)
[2016-04-04] MEDS: DOXYCYCLINE HYCLATE 100 MG TABLET.ORL PO SCH ×2 (09:08→21:54)
[2016-04-04] MEDS: DIVALPROEX 125 MG CAP.SPRINK PO SCH ×2 (09:08→21:54)
[2016-04-04] MEDS: DOCUSATE SODIUM 100 MG CAPSULE PO SCH ×2 (09:09→21:54)
[2016-04-04] MEDS: cefTRIAXone 1 GM in DEXTROSE 5% IN WATER 50 ML IV SCH (09:11)
[2016-04-04 09:16] LABS: ALT/SGPT 13 U/l (0-40); Albumin 2.8 gm/dL (3.2-5.2); Alkaline Phosphatase 51 U/L (39-117); Bilirubin,Direct < 0.2 mg/dL (0.0-0.3); Blood Urea Nitrogen 5 mg/dl (8-23); Gamma Glutamyl Transpeptidase 16 U/L (8-61); Magnesium 1.7 mg/dL (1.6-2.5); Phosphorous 2.7 mg/dL (2.7-4.5); Uric Acid 3.3 mg/dL (2.5-8.0)
[2016-04-04] MEDS: VANCOMYCIN 1,500 MG in 0.9 % SODIUM CHLORIDE 500 ML IV SCH ×2 (10:13→21:54)
--- NOTE | 2016-04-04 10:17 | Internal Med Progress Note ---
Medical - PN: Subj Patient information: Note initiated : 04/04/16 at 10:13 am Service Date, if different from initiated Date: [] Patient: Armand Ramirez 65 y/o M admitted on 03/31/16 for Fever/Pneumonia, Sepsis, UTI. Chief Complaint: [] Interval history: The patient seen examined no acute overnight events Pt lying comfortably in bed, denies any pain labs show improving wbc, Microbiology done yesterday unfortunately now is positive for GPC both bottles, this is the third culture which has turned positive. Pt is tolerating po diet well Pertinent ROS: Denies headache, dizziness Denies chest pain, palpitations Denies cough or shortness of breath Denies abdominal pain, nausea or vomiting. - Constitutional Vitals: Vital Signs Temp Pulse Resp BP Pulse Ox 97.5 F L 55 L 24 142/85 93 04/04/16 07:48 04/04/16 07:48 04/04/16 07:48 04/04/16 07:48 04/04/16 07:48 Period Temp Pulse Resp BP Sys/Leigh Pulse Ox Last 24 Hr 97.5 F-99.5 F 55-80 16-24 105-142/68-85 90-96 Intake and Output 04/03/16 04/04/16 04/04/16 21:59 05:59 13:59 Intake Total 983 / 983 1827 / 1827 120 / 120 Output Total 2 / 2 Balance 981 / 981 1826 / 1826 119 / 119 Weight 217 lb Intake & Output: Intake & Output 04/03/16 04/04/16 04/04/16 21:59 05:59 13:59 Intake Total 983 / 983 1827 / 1827 120 / 120 Output Total 2 / 2 Balance 981 / 981 1826 / 1826 119 / 119 Weight 217 lb Intake: IV 543 / 543 1457 / 1457 Sodium Chloride 0.9% 1, 43 / 43 957 / 957 000 ml @ 100 mls/hr IV . Q10H [facility] Rx#:[id number] Sodium Chloride 0.9% 500 500 / 500 500 / 500 ml @ 333.3 mls/hr IV Q12H [facility] with Vancomycin 1, 500 mg Rx#:[id number] Oral 440 / 440 370 / 370 120 / 120 Output: # of times incontinent of 2 / 2 urine Other: Meal Dinner Breakfast Percent of Meal Consumed 100% 25% Feeding Ability Total Assistance - Head Additional comments: Constitutional; Afebrile, cooperative, alert, not in distress. Eyes- No icterus, Pupils equal, reactive, No periorbital swelling , zenaida conjunctivitis, left > right Ears- Ext ear normal, hearing normal to conversation. Neck- Midline trachea, supple Respiratory system: Air Entry equal on both sides, No crackles or wheezing, no rhonchi. CVS- Rate rhythm regular, S1,S2 heard, no gallop, no rub. Abdomen- Soft nontender abdomen, no organomegaly, no tenderness, no guarding or rigidity, SOLUTIONS SPECIALIST- AOOx1, moving all extremities, no focal deficit noted. MIld spinal tenderness on the T vertebrae Major joints examined, no e/o septic arhtrits. No e/o skin abscess/ gross phlebitis Medical - PN: Obj Da - Labs CBC & Chem 7: 04/04/16 08:15 04/04/16 08:15 Labs: Abnormal Lab Results 04/04/16 04/04/16 04/03/16 08:15 08:15 05:34 WBC 4.4 L RBC 4.23 L 4.09 L Hgb 12.3 L 12.3 L Hct 37.9 L 37.2 L Plt Count 122 L 130 L Lymph # 0.9 L Monocytes % (Manual) Platelet Estimate Decreased A BUN 5 L Creatinine 0.5 L Calcium 8.0 L Lactate Dehydrogenase Total Protein 5.5 L Albumin 2.8 L Triglycerides 156 H 04/03/16 04/02/16 04/02/16 04:39 05:00 05:00 WBC RBC 4.14 L Hgb 12.3 L Hct 37.7 L Plt Count 107 L Lymph # Monocytes % (Manual) 12 H Platelet Estimate Decreased A BUN Creatinine 0.6 L 0.6 L Calcium 7.9 L 7.8 L Lactate Dehydrogenase 264 H Total Protein 5.7 L 5.5 L Albumin 3.1 L 2.9 L Triglycerides 173 H Meds: Medications Acetaminophen (Tylenol) 650 mg PO Q6HP PRN PRN Reason: PAIN/FEVER > 101 Divalproex Sodium (Depakote Sprinkles) 125 mg PO BID [facility] Last Admin: 02/21/17 09:08 Dose: 125 mg Docusate Sodium (Colace) 100 mg PO BID [facility] Last Admin: 04/04/16 09:09 Dose: Not Given Doxycycline Hyclate (Doxycycline Hyclate) 100 mg PO BID [facility] Stop: 04/06/16 21:01 Last Admin: 04/04/16 09:08 Dose: 100 mg Heparin Sodium (Porcine) (Heparin) 5,000 unit SQ Q12 [facility] Last Admin: 04/04/16 09:06 Dose: 5,000 unit Sodium Chloride (Sodium Chloride 0.9%) 1,000 mls @ 100 mls/hr IV .Q10H [facility] Last Admin: 04/04/16 09:11 Dose: 100 mls/hr Ceftriaxone Sodium 1 gm/ (Dextrose) 50 mls @ 100 mls/hr IV DAILY [facility] Last Admin: 04/04/16 09:11 Dose: 100 mls/hr Vancomycin HCl 1,500 mg/ (Sodium Chloride) 500 mls @ 333.3 mls/hr IV Q12H [facility] Last Admin: 04/04/16 10:13 Dose: 333.3 mls/hr Levetiracetam (Keppra) 1,000 mg PO BID [facility] Last Admin: 04/04/16 09:07 Dose: 1,000 mg Magnesium Hydroxide (Milk Of Magnesia) 30 ml PO DAILYP PRN PRN Reason: Constipation Olanzapine (Zyprexa) 2.5 mg PO HS [facility] Last Admin: 04/03/16 20:44 Dose: 2.5 mg Ondansetron HCl (Zofran) 4 mg IV Q6HP PRN PRN Reason: Nausea And Vomiting Pantoprazole Sodium (Protonix) 40 mg PO ACB [facility] Last Admin: 04/04/16 07:35 Dose: 40 mg Memantine Hcl [ Namenda Xr] 28 Mg Capsule 1 dose PO DAILY [facility] Last Admin: 04/04/16 09:06 Dose: 1 dose Promethazine HCl (Phenergan) 12.5 mg IV Q6HP PRN PRN Reason: Nausea And Vomiting Sertraline HCl (Zoloft) 50 mg PO DAILY [facility] Last Admin: 04/04/16 09:07 Dose: 50 mg Sodium Chloride (Saline Flush) 10 ml IV Q8 [facility] Last Admin: 04/04/16 07:35 Dose: Not Given Tobramycin Sulfate (Tobrex 0.3% Ophth Drops) 2 gtt OU QID [facility] Vancomycin HCl (Vancomycin Per Pharmacy) 1 order IV UD [facility] Medical - PN: A/P - Time Spent With Patient Total time spent is greater than 50% in coordination of care (as documented) at patient's floor/unit and/or counseling patient: (1) Traumatic brain injury Status: Acute Current Visit: Yes (2) Urinary tract infection Status: Acute Current Visit: Yes (3) Community acquired pneumonia Status: Acute Current Visit: Yes (4) Bacteremia Status: Acute Current Visit: Yes (5) Conjunctivitis Status: Acute Current Visit: Yes - Narrative A/P Narrative: contiue antibiotics for PNA and UTI, on rocephin and doxycycline Bactermia- Coag neg staph is usually a contaminant, but can be a pathogen too, clinically he seems to be improving, on IV vancomycin, but persitant bactermia is concerning. Trans thoracic echo is negative. Will get Trans esophageal Echo/ and MRI of C T and L spine to r/o epidural abscess, check esr and crp conjunctivities- Tobramycin eye drops continue Rehab Dispo- D/c to [facility] vs SNF depending on the etiology and need for antibiotics. dvt hep sq Diet dysphagia diet Medical - PN: Qual - Stroke Symptom Onset Unknown: No - VTE Deep Vein Thrombosis/Pulmonary Embolism Present on Admission: No
[2016-04-04 11:07] LABS: C-Reactive Protein 3.4 mg/dl (0.0-0.8)
[2016-04-04] MEDS ORDERED: TOBRAMYCIN 0.3% OU SCH (13:00)
[2016-04-04] MEDS: GENTAMICIN 0.3% OPHTH DROPS 5ML BOTTLE OU SCH ×3 (13:50→21:55)
[2016-04-04] MEDS: OLANZapine 2.5 MG TABLET PO SCH (21:54)
[2016-04-05] MEDS: 0.9 % SODIUM CHLORIDE 10 ML SYRINGE IV SCH ×3 (05:28→23:15)
[2016-04-05 06:57] LABS: Basophils # (Auto) 0 K/mcL (0.0-0.3); Basophils % (Auto) 0.6 % (0.0-2.0); Eosinophils # (Auto) 0.2 K/mcL (0.0-0.7); Eosinophils % (Auto) 3.9 % (0.0-7.0); Granulocytes % (Auto) 66.4 % (38.0-78.0); Lymphocytes # (Auto) 1.1 K/mcL (1.5-4.8); Lymphocytes % (Auto) 18.4 % (15.5-49.0); Mean Cell Volume 90.9 fL (80.0-100.0); Mean Corpuscular HGB Conc 32.9 g/dL (31.0-36.0); Mean Corpuscular Hemoglobin 29.9 pg (26.0-34.0); Monocytes # (Auto) 0.6 K/mcL (0.1-0.9); Monocytes % (Auto) 10.7 % (1.0-9.0); Platelet Count 136 K/mcL (140-440); RBC 4.24 M/mcL (4.50-5.90); Red Cell Distribution Width 13.8 % (11.5-14.5)
[2016-04-05 07:23] LABS: ALT/SGPT 35 U/l (0-40); Albumin 3.2 gm/dL (3.2-5.2); Albumin/Globulin Ratio 1.5 (1.0-2.3); Alkaline Phosphatase 55 U/L (39-117); Bilirubin,Direct < 0.2 mg/dL (0.0-0.3); Blood Urea Nitrogen 3 mg/dl (8-23); Gamma Glutamyl Transpeptidase 16 U/L (8-61); Magnesium 1.8 mg/dL (1.6-2.5); Phosphorous 3.2 mg/dL (2.7-4.5); Uric Acid 3.4 mg/dL (2.5-8.0)
[2016-04-05] MEDS: PANTOPRAZOLE 40 MG TABLET PO SCH (07:29)
[2016-04-05] MEDS: MEMANTINE HCL 28 MG PO SCH (08:43)
[2016-04-05] MEDS: cefTRIAXone 1 GM in DEXTROSE 5% IN WATER 50 ML IV SCH (08:43)
[2016-04-05] MEDS: DIVALPROEX 125 MG CAP.SPRINK PO SCH ×2 (08:43→21:16)
[2016-04-05] MEDS: GENTAMICIN 0.3% OPHTH DROPS 5ML BOTTLE OU SCH ×4 (08:43→21:23)
[2016-04-05] MEDS: HEPARIN 5,000 UNIT/ML VIAL SQ SCH ×2 (08:43→21:16)
[2016-04-05] MEDS: DOCUSATE SODIUM 100 MG CAPSULE PO SCH ×2 (08:44→21:16)
[2016-04-05] MEDS: DOXYCYCLINE HYCLATE 100 MG TABLET.ORL PO SCH ×2 (08:44→21:31)
[2016-04-05] MEDS: SERTRALINE 50 MG TABLET PO SCH (08:44)
[2016-04-05] MEDS: VANCOMYCIN 1,500 MG in 0.9 % SODIUM CHLORIDE 500 ML IV SCH ×2 (09:25→22:11)
[2016-04-05] MEDS: levETIRAcetam 1,000 MG in 0.9 % SODIUM CHLORIDE 100 ML IV SCH ×2 (12:07→21:16)
[2016-04-05] MEDS: levETIRAcetam 500 MG TABLET PO SCH (13:50)
--- NOTE | 2016-04-05 15:07 | Internal Med Progress Note ---
Medical - PN: Subj Patient information: Note initiated : 04/05/16 at 3:03 pm Service Date, if different from initiated Date: [] Patient: Armand Ramirez a 65 y/o M admitted on 03/31/16 for Fever/Pneumonia, Sepsis, UTI. Chief Complaint: [] Interval history: 03/31 Mr. Ramirez is a 65 year old male who lives with guardian angles, presented to the ER with fever and decreased mentation. The patient brother provided history to the ER physician as per notes, but he was not at bedside. The patient only answers his name, but otherwise does not provide any meaninful history. The chart review notes that the patient has not been feeling well since sunday likely, with decrease in mentation and also having fever and that was the main reason for bringing him to the hospital. Possible cough and some h/o UTI in the past. The pt is a poor historian due to h/o traumatic brain injury. He is on multiple meds for same. 04/01-04/04-multiple blood cultures positive including surveillance from and 03 April growing gram-positive cocci. 04/05- Patient on vancomycin/Rocephin. Fever defervesced. Unclear source. echocardiogram no evidence of valvular vegetation however IE cannot be ruled out. case discussed withPIERO Toney expressed concerns about patient's insurance and inability to pay supplement. However it clearly explained the risk of persistent bacteremia and the need for source identification which may include transesophageal echocardiogram/tagged white blood cell studies/possible PRODUCTION WELDING SUPERVISOR shunt catheter infection and need evaluation by seafood processor/intervention radiologist/infectious disease specialist and possibly neurosurgeon in light of persistent bacteremia and risk of PRODUCTION WELDING SUPERVISOR shunt catheter infection. At this time I' m coordinating transfer to [facility] to facilitate the same. for the family conferences today - Constitutional Vitals: Vital Signs Temp Pulse Resp BP Pulse Ox 97.3 F L 68 14 126/70 91 04/05/16 12:00 04/05/16 12:00 04/05/16 12:00 04/05/16 12:00 04/05/16 12:00 Period Temp Pulse Resp BP Sys/Leigh Pulse Ox Last 24 Hr 97.3 F-98.7 F 61-78 14-20 126-138/70-85 91-93 Intake and Output 04/05/16 04/05/16 04/05/16 05:59 13:59 21:59 Intake Total 600 / 600 240 / 240 Output Total 4 / 4 3 / 3 Balance 596 / 596 237 / 237 Intake & Output: Intake & Output 04/05/16 04/05/16 04/05/16 05:59 13:59 21:59 Intake Total 600 / 600 240 / 240 Output Total 4 / 4 3 / 3 Balance 596 / 596 237 / 237 Intake: IV 500 / 500 Sodium Chloride 0.9% 500 500 / 500 ml @ 333.3 mls/hr IV Q12H [facility] with Vancomycin 1, 500 mg Rx#:[id number] Oral 100 / 100 240 / 240 Output: # of times incontinent of 4 / 4 3 / 3 urine Other: Meal Breakfast Percent of Meal Consumed 100% General appearance: cooperative, no acute distress Exam: nonlabored breathing nondistended abdomen No anxiety Medical - PN: Obj Da - Labs CBC & Chem 7: 04/05/16 05:00 04/05/16 05:00 Labs: Abnormal Lab Results 04/05/16 04/05/16 04/04/16 05:00 05:00 08:15 WBC RBC 4.24 L Hgb 12.7 L Hct 38.6 L Plt Count 136 L Beaver % (Auto) 10.7 H Lymph # 1.1 L Platelet Estimate ESR Potassium 3.2 L BUN 3 L Creatinine 0.5 L Calcium 8.1 L AST 45 H Lactate Dehydrogenase C-Reactive Protein 3.4 H Total Protein 5.4 L Albumin Triglycerides 201 H 04/04/16 04/04/16 04/04/16 08:15 08:15 08:15 WBC 4.4 L RBC 4.23 L Hgb 12.3 L Hct 37.9 L Plt Count 122 L Beaver % (Auto) Lymph # 0.9 L Platelet Estimate ESR 16 H Potassium BUN 5 L Creatinine 0.5 L Calcium 8.0 L AST Lactate Dehydrogenase C-Reactive Protein Total Protein 5.5 L Albumin 2.8 L Triglycerides 156 H 04/03/16 04/03/16 05:34 04:39 WBC RBC 4.09 L Hgb 12.3 L Hct 37.2 L Plt Count 130 L Beaver % (Auto) Lymph # Platelet Estimate Decreased A ESR Potassium BUN Creatinine 0.6 L Calcium 7.9 L AST Lactate Dehydrogenase 264 H C-Reactive Protein Total Protein 5.7 L Albumin 3.1 L Triglycerides 173 H Meds: Medications Acetaminophen (Tylenol) 650 mg PO Q6HP PRN PRN Reason: PAIN/FEVER > 101 Divalproex Sodium (Depakote Sprinkles) 125 mg PO BID [facility] Last Admin: 04/05/16 08:43 Dose: 125 mg Docusate Sodium (Colace) 100 mg PO BID [facility] Last Admin: 04/05/16 08:44 Dose: 100 mg Doxycycline Hyclate (Doxycycline Hyclate) 100 mg PO BID [facility] Stop: 04/06/16 21:01 Last Admin: 04/05/16 08:44 Dose: 100 mg Gentamicin Sulfate (Gentamicin 0.3% Ophth Drops) 2 gtt OU QID [facility] Last Admin: 04/05/16 13:55 Dose: 2 gtt Heparin Sodium (Porcine) (Heparin) 5,000 unit SQ Q12 [facility] Last Admin: 04/05/16 08:43 Dose: 5,000 unit Ceftriaxone Sodium 1 gm/ (Dextrose) 50 mls @ 100 mls/hr IV DAILY [facility] Last Admin: 04/05/16 08:43 Dose: 100 mls/hr Vancomycin HCl 1,500 mg/ (Sodium Chloride) 500 mls @ 333.3 mls/hr IV Q12H [facility] Last Admin: 04/05/16 09:25 Dose: 333.3 mls/hr Levetiracetam 1,000 mg/ Sodium (Chloride) 110 mls @ 200 mls/hr IV Q12 [facility] Last Admin: 04/05/16 12:07 Dose: 200 mls/hr Magnesium Hydroxide (Milk Of Magnesia) 30 ml PO DAILYP PRN PRN Reason: Constipation Olanzapine (Zyprexa) 2.5 mg PO HS [facility] Last Admin: 04/04/16 21:54 Dose: 2.5 mg Ondansetron HCl (Zofran) 4 mg IV Q6HP PRN PRN Reason: Nausea And Vomiting Pantoprazole Sodium (Protonix) 40 mg PO ACB [facility] Last Admin: 04/05/16 07:29 Dose: 40 mg Memantine Hcl [ Namenda Xr] 28 Mg Capsule 1 dose PO DAILY [facility] Last Admin: 04/05/16 08:43 Dose: 1 dose Promethazine HCl (Phenergan) 12.5 mg IV Q6HP PRN PRN Reason: Nausea And Vomiting Sertraline HCl (Zoloft) 50 mg PO DAILY [facility] Last Admin: 04/05/16 08:44 Dose: 50 mg Sodium Chloride (Saline Flush) 10 ml IV Q8 [facility] Last Admin: 04/05/16 13:55 Dose: 10 ml Vancomycin HCl (Vancomycin Per Pharmacy) 1 order IV UD [facility] Medical - PN: A/P - Time Spent With Patient Total time spent is greater than 50% in coordination of care (as documented) at patient's floor/unit and/or counseling patient: Greater than 35 minutes (1) Staphylococcus aureus bacteremia Status: Acute Assessment and plan: * staph aureus bacteremia- multiple cultures positive from . No identifiable source. Negative transthoracic echo. Transfer to tertiary [place] for ID/cardiology consult for transesophageal echo along with WBC scan and neurosurgery consult(possible infected PRODUCTION WELDING SUPERVISOR shunt) * history of CVA disorder on Keppra/Depakote * Dementia on memantine * Anxiety on sertraline/Zyprexa * DVT prophylaxis heparin plan * Continue antibiotic coverage * Arrange transfer to tertiary [place] for above * Pre-existing medical condition management as above time spent on discussion with family/treatment planning in coordinating transfer over 65 minutes Current Visit: Yes Medical - PN: Qual - Stroke Symptom Onset Unknown: No - VTE Deep Vein Thrombosis/Pulmonary Embolism Present on Admission: No
[2016-04-05] MEDS: OLANZapine 2.5 MG TABLET PO SCH (21:16)
[2016-04-06] MEDS: 0.9 % SODIUM CHLORIDE 10 ML SYRINGE IV SCH (04:55)
[2016-04-06 06:06] LABS: Basophils # (Auto) 0 K/mcL (0.0-0.3); Basophils % (Auto) 0.7 % (0.0-2.0); Eosinophils # (Auto) 0.2 K/mcL (0.0-0.7); Eosinophils % (Auto) 4.4 % (0.0-7.0); Granulocytes % (Auto) 60.6 % (38.0-78.0); Lymphocytes # (Auto) 1.4 K/mcL (1.5-4.8); Lymphocytes % (Auto) 26.1 % (15.5-49.0); Mean Cell Volume 91.1 fL (80.0-100.0); Mean Corpuscular HGB Conc 32.4 g/dL (31.0-36.0); Mean Corpuscular Hemoglobin 29.5 pg (26.0-34.0); Monocytes # (Auto) 0.5 K/mcL (0.1-0.9); Monocytes % (Auto) 8.2 % (1.0-9.0); Platelet Count 141 K/mcL (140-440); RBC 4.14 M/mcL (4.50-5.90); Red Cell Distribution Width 14.1 % (11.5-14.5)
[2016-04-06] MEDS: PANTOPRAZOLE 40 MG TABLET PO SCH (07:05)
[2016-04-06 07:08] LABS: ALT/SGPT 41 U/l (0-40); Albumin 3.1 gm/dL (3.2-5.2); Albumin/Globulin Ratio 1.5 (1.0-2.3); Alkaline Phosphatase 58 U/L (39-117); Bilirubin,Direct < 0.2 mg/dL (0.0-0.3); Blood Urea Nitrogen 5 mg/dl (8-23); Gamma Glutamyl Transpeptidase 15 U/L (8-61); Magnesium 1.8 mg/dL (1.6-2.5); Phosphorous 3.4 mg/dL (2.7-4.5); Uric Acid 3.4 mg/dL (2.5-8.0)
[2016-04-06] MEDS: levETIRAcetam 1,000 MG in 0.9 % SODIUM CHLORIDE 100 ML IV SCH (08:32)
[2016-04-06] MEDS: DOCUSATE SODIUM 100 MG CAPSULE PO SCH (08:38)
[2016-04-06] MEDS: HEPARIN 5,000 UNIT/ML VIAL SQ SCH (08:38)
[2016-04-06] MEDS: DIVALPROEX 125 MG CAP.SPRINK PO SCH (08:38)
[2016-04-06] MEDS: SERTRALINE 50 MG TABLET PO SCH (08:38)
[2016-04-06] MEDS: GENTAMICIN 0.3% OPHTH DROPS 5ML BOTTLE OU SCH (08:39)
[2016-04-06] MEDS: DOXYCYCLINE HYCLATE 100 MG TABLET.ORL PO SCH (09:08)
[2016-04-06] MEDS: MEMANTINE HCL 28 MG PO SCH (09:08)
--- NOTE | 2016-04-06 09:44 | Transfer Summary ---
Transfer Discharge Sum: Prov Patient information: Note initiated : 04/06/16 at 9:39 am Service Date, if different from initiated Date: [] Patient: Armand Ramirez 65 y/o M admitted on 03/31/16 for Fever/Pneumonia, Sepsis, UTI. Chief Complaint: [] Date of admission: 03/31/16 14:50 Discharge Date: 04/06/16 Primary care physician: [f_Reg Prim Care Provider] Transfer Discharge Sum: Diag - Discharge Diagnosis (1) Staphylococcus aureus bacteremia Status: Acute Transfer Discharge Sum: Med - Medications Active and Home Medications: Home Medications Acetaminophen [Tylenol] 325 mg PO Q6HP PRN 03/31/16 [History Confirmed 03/31/16] Bisacodyl [Dulcolax] 10 mg [place] PRN PRN 03/31/16 [History Confirmed 03/31/16] Divalproex Sodium [Depakote] 125 mg PO BID 03/31/16 [History Confirmed 03/31/16] Mag Hydrox/Al Hydrox/Simeth [Maalox] 30 ml PO PRN PRN 03/31/16 [History Confirmed 03/31/16] Memantine HCl [Namenda Xr] 28 mg PO DAILY 03/31/16 [History Confirmed 03/31/16] OLANZapine [Zyprexa] 2.5 mg PO HS 03/31/16 [History Confirmed 03/31/16] Pantoprazole [Protonix] 40 mg PO DAILY 03/31/16 [History Confirmed 03/31/16] Sertraline [Zoloft] 50 mg PO DAILY 03/31/16 [History Confirmed 03/31/16] levETIRAcetam [Keppra] 1,000 mg PO BID 03/31/16 [History Confirmed 03/31/16] Active Medications Acetaminophen (Tylenol) 650 mg PO Q6HP PRN PRN Reason: PAIN/FEVER > 101 Divalproex Sodium (Depakote Sprinkles) 125 mg PO BID [facility] Last Admin: 04/06/16 08:38 Dose: 125 mg Docusate Sodium (Colace) 100 mg PO BID [facility] Last Admin: 04/06/16 08:38 Dose: 100 mg Doxycycline Hyclate (Doxycycline Hyclate) 100 mg PO BID [facility] Stop: 04/06/16 21:01 Last Admin: 04/06/16 09:08 Dose: 100 mg Gentamicin Sulfate (Gentamicin 0.3% Ophth Drops) 2 gtt OU QID [facility] Last Admin: 04/06/16 08:39 Dose: 2 gtt Heparin Sodium (Porcine) (Heparin) 5,000 unit SQ Q12 [facility] Last Admin: 04/06/16 08:38 Dose: 5,000 unit Ceftriaxone Sodium 1 gm/ (Dextrose) 50 mls @ 100 mls/hr IV DAILY [facility] Last Admin: 04/05/16 08:43 Dose: 100 mls/hr Vancomycin HCl 1,500 mg/ (Sodium Chloride) 500 mls @ 333.3 mls/hr IV Q12H [facility] Last Infusion: 04/05/16 23:45 Dose: Infused Levetiracetam 1,000 mg/ Sodium (Chloride) 110 mls @ 200 mls/hr IV Q12 [facility] Last Admin: 04/06/16 08:32 Dose: 200 mls/hr Magnesium Hydroxide (Milk Of Magnesia) 30 ml PO DAILYP PRN PRN Reason: Constipation Olanzapine (Zyprexa) 2.5 mg PO HS [facility] Last Admin: 04/05/16 21:16 Dose: 2.5 mg Ondansetron HCl (Zofran) 4 mg IV Q6HP PRN PRN Reason: Nausea And Vomiting Pantoprazole Sodium (Protonix) 40 mg PO ACB [facility] Last Admin: 04/06/16 07:05 Dose: 40 mg Memantine Hcl [ Namenda Xr] 28 Mg Capsule 1 dose PO DAILY [facility] Last Admin: 04/06/16 09:08 Dose: 1 dose Promethazine HCl (Phenergan) 12.5 mg IV Q6HP PRN PRN Reason: Nausea And Vomiting Sertraline HCl (Zoloft) 50 mg PO DAILY [facility] Last Admin: 04/06/16 08:38 Dose: 50 mg Sodium Chloride (Saline Flush) 10 ml IV Q8 [facility] Last Admin: 04/06/16 04:55 Dose: 10 ml Vancomycin HCl (Vancomycin Per Pharmacy) 1 order IV UD [facility] Transfer Discharge Sum: Hosp Hospital course: Mr. Ramirez is a 65 year old male TRANSFER DIAGNOSIS * coag-negative staph aureus bacteremia- multiple cultures positive from - the . No identifiable source as yet. however responding to vancomycin with negative surveillance cultures from . Negative transthoracic echo. Transfer to tertiary Center for ID/cardiology consult for CRUZ along with WBC scan and neurosurgery consult(possible infected [employer] shunt) * History of TBI/seizure disorder on Keppra/Depakote * Dementia on memantine * Anxiety on sertraline/Zyprexa * DVT prophylaxis heparin BRIEF HOSPITAL COURSE 03/31 Mr. Ramirez is a 65 year old male who lives at [facility], presented to the ER with fever and decreased mentation. The patient brother provided history to the ER physician as per notes, but he was not at bedside. The patient only answers his name, but otherwise does not provide any meaninful history. The chart review notes that the patient has not been feeling well since sunday likely, with decrease in mentation and also having fever and that was the main reason for bringing him to the hospital. Possible cough and some h/o UTI in the past. The pt is a poor historian due to h/o traumatic brain injury. He is on multiple meds for same. 04/01-04/04-multiple blood cultures positive including surveillance from and 03 April growing gram-positive cocci. 04/05- Patient has been kept on vancomycin/Rocephin for the last 5 days. Fever defervesced. Unclear source. echocardiogram no evidence of valvular vegetation however IE cannot be ruled out. case discussed with POYris Ryan Ramirez who expressed concerns about patient's insurance and inability to pay Medicare supplement. However I clearly explained the risk and the need for source identification which may include transesophageal echocardiogram/tagged white blood cell studies/possible [employer] shunt catheter infection and need evaluation by numerical control tool programmer/intervention radiologist/infectious disease specialist and possibly neurosurgeon in light of persistent bacteremia and possible [employer] shunt catheter infection. At this time I'm coordinating transfer to [facility] to facilitate the same. for the family conferences today 04/06- patient feeling at baseline. Afebrile. Family agrees to transfer to tertiary Center for evaluation including transesophageal echo/ID consult/the patient eval for possible source of bacteremia. surveillance Cultures from - negative so far. coag-negative staph colonies from and . on vancomycin. [facility]. Appreciate help and accept the patient for further management - Time Spent with Patient Total time spent providing and/or coordinating transfer services: Greater than 30 minutes Transfer Discharge Sum: Exam - Constitutional Vitals: Vital Signs Temp Pulse Resp BP BP Pulse Ox 04/06/16 06:44 97.8 F 16 133/86 93 04/06/16 03:47 98.5 F 70 22 144/95 94 04/05/16 23:52 97.9 F 75 22 133/84 93 04/05/16 19:50 97.8 F 83 24 132/88 94 04/05/16 16:00 98.5 F 74 14 117/81 94 04/05/16 12:00 97.3 F L 68 14 126/70 91 Intake and Output 04/05/16 04/06/16 04/06/16 21:59 05:59 13:59 Intake Total 350 / 350 940 / 940 400 / 400 Output Total 3 / 3 1 / 1 2 / 2 Balance 347 / 347 939 / 939 398 / 398 Intake: IV 110 / 110 500 / 500 Sodium Chloride 0.9% 500 500 / 500 ml @ 333.3 mls/hr IV Q12H [facility] with Vancomycin 1, 500 mg Rx#:[id number] Sodium Chloride 0.9% 100 110 / 110 ml @ 200 mls/hr IV Q12 [facility] with Keppra 1,000 mg Rx#:[id number] Oral 240 / 240 440 / 440 400 / 400 Output: # of times incontinent of 3 / 3 1 / 1 2 / 2 urine Other: Meal Dinner Breakfast Percent of Meal Consumed 100% 100% Feeding Ability Total Assistance Independent # Voids 1 Weight 218 lb General appearance: cooperative Additional comments: nonlabored breathing nondistended abdomen Transfer Discharge Sum: Data Procedures and tests throughout hospitalization: Pending Orders Transfer Discharge Sum: A/P - Problem Maintenance (1) Staphylococcus aureus bacteremia Status: Acute - Plan Functional capacity at transfer: bed bound Overall status at transfer: patient is progressing back to baseline Disposition: Xfer [facility] Quality Measure Queries - VTE Deep Vein Thrombosis/Pulmonary Embolism Present on Admission: No
[2016-04-06] MEDS: cefTRIAXone 1 GM in DEXTROSE 5% IN WATER 50 ML IV SCH (10:25)
== END 2016-04-06 11:35 | disposition short-term general hospital (02) | DRG 871 ==
LOC: ED-MC 09:45 → MEDSUR 13:20
PROVIDERS: ADMIT Internal Medicine; ATTEND Internal Medicine

== ENCOUNTER 2023-03-25 18:13 | Inpatient (IN) ==
[2023-03-25] MEDS ORDERED: IOPAMIDOL 100 ML BOTTLE IV ONE ×2 (18:14)
[2023-03-25] MEDS: 0.9 % SODIUM CHLORIDE 500 ML ONE (18:59)
[2023-03-25 19:12] LABS: Basophils # (Auto) 0.05 K/mcL (0.00-0.30); Basophils % (Auto) 0.8 % (0.0-2.0); Eosinophils # (Auto) 0.06 K/mcL (0.00-0.70); Eosinophils % (Auto) 0.9 % (0.0-7.0); Hematocrit 44.7 % (40.1-51.0); Hemoglobin 14.5 g/dL (13.7-17.5); Lymphocytes # (Auto) 0.53 K/mcL (1.50-4.80); Lymphocytes % (Auto) 8.3 % (15.5-49.0); Mean Cell Volume 98.2 fL (80.0-100.0); Mean Corpuscular HGB Conc 32.4 g/dL (31.0-36.0); Mean Platelet Volume 10.2 fL (8.8-12.5); Monocytes # (Auto) 0.57 K/mcL (0.10-0.90); Monocytes % (Auto) 8.9 % (1.0-12.0); Neutrophils % (Auto) 80.6 % (38.0-78.0); Platelet Count 168 K/mcL (140-440); RBC 4.55 M/mcL (4.63-6.08); Red Cell Distribution Width 13.6 % (11.5-14.5); WBC 6.4 K/mcL (4.5-11.0)
[2023-03-25 19:16] LABS: Appearance,Urine Cloudy (Clear); Bacteria,Urine Many /hpf (0); Bilirubin,Urine Negative (Negative); Color,Urine Yellow; Culture Indicated,Urine Yes; Glucose,Urine (UA) Negative (Negative); Ketones,Urine 15 mg/dL (Negative); Leukocyte Esterase,Urine Moderate /uL (Negative); Nitrate,Urine Negative (Negative); PH,Urine 7.5 (5.0-9.0); Protein,Urine 100 mg/dL (Negative); Urine Blood Moderate ery/mcL (Negative); Urine RBC 40 /hpf (0-3); Urine Squamous Epithelial Cell 0 /hpf (0-4); Urine WBC > 182 /hpf (0-4); Urobilinogen,Urine Normal
[2023-03-25] MEDS: CEFEPIME 2 GM in DEXTROSE 5% IN WATER 50 ML IV ONE (19:24)
[2023-03-25] MEDS: 0.9 % SODIUM CHLORIDE 1,000 ML IV ONE (19:24)
[2023-03-25 19:25] LABS: ALT/SGPT 12 U/L (<40); AST/SGOT 23 U/L (<40); Albumin 3.7 gm/dL (3.2-5.2); Albumin/Globulin Ratio 1.2 (1.0-2.3); Alkaline Phosphatase 78 U/L (39-117); Bilirubin,Total 0.3 mg/dL (0.1-1.0); Blood Urea Nitrogen 12 mg/dL (8-23); Calcium 8.6 mg/dL (8.6-10.4); Carbon Dioxide 22 mmol/L (22-30); Chloride 103 mmol/L (96-108); Glomerular Filtration Rate 94; Glucose 116 mg/dL (70-105)
[2023-03-25] MEDS: ACETAMINOPHEN 1,000 MG/100 ML BAG IV ONE (19:53)
[2023-03-25 20:05] LABS: INR 1.1 (0.9-1.1); Prothrombin Time 14.8 sec (11.9-14.5)
[2023-03-25] MEDS: VANCOMYCIN 1,500 MG in 0.9 % SODIUM CHLORIDE 500 ML IV ONE (21:30)
[2023-03-26] MEDS ORDERED: ONDANSETRON 4 MG/2 ML VIAL IV PRN (00:45)
[2023-03-26] MEDS ORDERED: ACETAMINOPHEN 325 MG TABLET PO PRN (00:45)
[2023-03-26] MEDS ORDERED: IBUPROFEN 600 MG TABLET PO PRN (00:45)
[2023-03-26] MEDS: LACTATED RINGERS 1,000 ML IV SCH (01:59)
[2023-03-26] MEDS: REMDESIVIR 200 MG in 0.9 % SODIUM CHLORIDE 250 ML IV ONE ×2 (01:59→10:48)
[2023-03-26] MEDS: 0.9 % SODIUM CHLORIDE 10 ML SYRINGE IV SCH (04:09)
[2023-03-26] MEDS: CEFEPIME 1 GM VIAL ONE (04:29)
[2023-03-26] MEDS: CEFEPIME 2 GM VIAL IV SCH (04:30)
[2023-03-26 06:18] LABS: ALT/SGPT 12 U/L (<40); AST/SGOT 23 U/L (<40); Albumin 3.4 gm/dL (3.2-5.2); Albumin/Globulin Ratio 1.1 (1.0-2.3); Alkaline Phosphatase 66 U/L (39-117); Bilirubin,Direct < 0.2 mg/dL (0-0.3); Bilirubin,Total 0.2 mg/dL (0.1-1.0); Blood Urea Nitrogen 9 mg/dL (8-23); Calcium 8.1 mg/dL (8.6-10.4); Carbon Dioxide 22 mmol/L (22-30); Chloride 104 mmol/L (96-108); Glomerular Filtration Rate 100; Glucose 81 mg/dL (70-105); Lactate Dehydrogenase 159 U/L (135-225); Phosphorous 3.3 mg/dL (2.5-4.5); Triglycerides 72 mg/dL (<150); Uric Acid 3.4 mg/dL (2.5-8.0)
[2023-03-26 07:10] LABS: Basophils # (Auto) 0.06 K/mcL (0.00-0.30); Basophils % (Auto) 0.9 % (0.0-2.0); Eosinophils # (Auto) 0.08 K/mcL (0.00-0.70); Eosinophils % (Auto) 1.2 % (0.0-7.0); Hematocrit 44.9 % (40.1-51.0); Hemoglobin 13.8 g/dL (13.7-17.5); Lymphocytes # (Auto) 0.91 K/mcL (1.50-4.80); Lymphocytes % (Auto) 13.9 % (15.5-49.0); Mean Corpuscular HGB Conc 30.7 g/dL (31.0-36.0); Mean Platelet Volume 10.9 fL (8.8-12.5); Monocytes # (Auto) 1.19 K/mcL (0.10-0.90); Monocytes % (Auto) 18.2 % (1.0-12.0); Neutrophils % (Auto) 65.5 % (38.0-78.0); Platelet Count 153 K/mcL (140-440); Red Cell Distribution Width 14.2 % (11.5-14.5); WBC 6.6 K/mcL (4.5-11.0)
[2023-03-26] MEDS: DOCUSATE SODIUM 100 MG CAPSULE PO SCH (08:44)
[2023-03-26] MEDS: ENOXAPARIN 40 MG/0.4 ML SYRINGE SQ SCH (08:45)
[2023-03-26] MEDS: DEXAMETHASONE 10 MG/ML VIAL IV SCH (08:45)
[2023-03-26] MEDS: DIVALPROEX 125 MG CAP.SPRINK PO SCH ×2 (10:40→13:37)
[2023-03-26] MEDS: levETIRAcetam 500 MG TABLET PO SCH ×2 (10:40→17:37)
[2023-03-26] MEDS: DIVALPROEX 125 MG PO SCH (10:45)
[2023-03-26] MEDS: REMDESIVIR 100 MG in 0.9 % SODIUM CHLORIDE 250 ML IV SCH (17:37)
[2023-03-26] MEDS: SENNOSIDES 1 TABLET PO SCH (21:18)
[2023-03-27 06:15] LABS: Basophils # (Auto) 0.03 K/mcL (0.00-0.30); Basophils % (Auto) 0.7 % (0.0-2.0); Eosinophils # (Auto) 0 K/mcL (0.00-0.70); Eosinophils % (Auto) 0 % (0.0-7.0); Hematocrit 36.9 % (40.1-51.0); Hemoglobin 11.6 g/dL (13.7-17.5); Lymphocytes # (Auto) 1.01 K/mcL (1.50-4.80); Lymphocytes % (Auto) 24.9 % (15.5-49.0); Mean Cell Volume 101.7 fL (80.0-100.0); Mean Corpuscular HGB Conc 31.4 g/dL (31.0-36.0); Mean Platelet Volume 11.1 fL (8.8-12.5); Monocytes # (Auto) 0.82 K/mcL (0.10-0.90); Monocytes % (Auto) 20.2 % (1.0-12.0); Platelet Count 122 K/mcL (140-440); RBC 3.63 M/mcL (4.63-6.08); Red Cell Distribution Width 13.7 % (11.5-14.5); WBC 4.1 K/mcL (4.5-11.0)
[2023-03-27] MEDS: cefTRIAXone 1 GM VIAL IV SCH (11:56)
[2023-03-28] MEDS: CETIRIZINE 10 MG TABLET PO SCH (10:00)
[2023-03-29] MEDS: DEXAMETHASONE 4 MG TABLET PO SCH (08:30)
== END 2023-03-29 12:13 | DRG 177 ==
LOC: ED 18:13 → MEDSUR 03-26 00:30
PROVIDERS: ADMIT Internal Medicine; ATTEND Internal Medicine